=== PATIENT | female | born 2000 | race Caucasian/White ===

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

== ENCOUNTER 2020-02-12 17:52 | Emergency (ER) | payer OTHER ==
[~2020-02-12] VITALS: Ht 157.5 cm; Wt 80.7 kg
[~2020-02-12 17:52] MED LIST: LEVO250T71 PO; PHEN-1749 PO; TAP5 PO
[2020-02-12 17:57] VITALS: BP 117/77
--- NOTE | 2020-02-12 18:00 | NUR ---
Pt ambulated to lobby accompanied by mother
[2020-02-12] MEDS ORDERED: INTUBATION KIT MC ONE (18:15)
--- NOTE | 2020-02-12 19:57 | NUR ---
PT TAKEN TO BED 12
[2020-02-12] MEDS ORDERED: NACL 0.9% 1,000 ML IV ONE (20:20)
--- NOTE | 2020-02-12 20:30 | NUR ---
Pt bib mother for lower abd pain since 1400, mother gave 2 hydrcodone at 1400 and pt began with numbess of mouth and headache. 7/10 PAIN. ABD IS ROUND, SOFT, NONTENDER TO TOUCH, AND ACTIVE BS. PT SAYS SHE HAS NORMAL BM AND DENIES ANY BLOOD IN THE STOOL, OR IN HER URINE. DENIES ANY DYSURIA. VSS. A&O X4. STEADY GAIT. NKDA. medhx: autism, hypothyroid
[2020-02-12 20:55] LABS: APPEARANCE,URINE CLEAR (CLEAR); BILIRUBIN,URINE 1+ (NEGATIVE); BLOOD, URINE 3+ (NEGATIVE); COLOR,URINE ORANGE (YELLOW); LEUKOCYTE ESTERASE ,URINE TRACE (NEGATIVE); NITRITE, URINE NEGATIVE (NEGATIVE); UGLUCOSE NEGATIVE (NEGATIVE)
[2020-02-12 20:56] LABS: BASOPHILS % (AUTO) 0.3 % (0.0-2.0); EOSINOPHILS % (AUTO) 0.1 % (0.0-4.0); HEMATOCRIT 44.2 % (36-48); HEMOGLOBIN 14.8 g/dL (12.0-16.0); LYMPHOCYTES # (AUTO) 2.7 K/uL (2.5-16.5); LYMPHOCYTES % (AUTO) 37.3 % (20.5-51.1); MEAN CORPUSCULAR HEMOGLOBIN 28 pg (27-31); MEAN CORPUSCULAR HGB CONC 34 g/dL (33-37); MEAN CORPUSCULAR VOLUME 83.1 fL (80-94); MONOCYTES # (AUTO) 0.6 K/uL (0.8-1.0); NEUTROPHILS # (AUTO) 3.9 K/uL (1.8-7.7); NEUTROPHILS % (AUTO) 54.3 % (42.2-75.2); PLATELET COUNT (AUTO) 260 K/uL (140-450); RED BLOOD CELL COUNT(AUTO) 5.32 MIL/uL (4.20-5.40); RED CELL DISTRIBUTION WIDTH 17.5 % (11.6-13.7); WHITE BLOOD COUNT (AUTO) 7.2 K/uL (4.5-11.0)
[2020-02-12 21:13] LABS: ALBUMIN 3.8 g/dL (3.4-5.0); ANION GAP 10.5 (8-16); CARBON DIOXIDE 29.5 mmol/L (21-32); CREATININE 0.8 mg/dL (0.6-1.3); TOTAL BILIRUBIN 0.5 mg/dL (0.0-1.0)
[2020-02-12 21:16] LABS: RBC,URINE TOO NUMEROUS TO COUN /HPF (0-5)
[2020-02-12 21:36] VITALS: BP 114/73
--- NOTE | 2020-02-12 22:04 | NUR ---
PT AMBULATED TO RESTROOM WITH STEADY GAIT.
[2020-02-12] MEDS ORDERED: cephALEXin 500 MG CAP PO STA (22:15)
== END 2020-02-12 23:13 | disposition home or self-care (01) ==
LOC: MED 17:52
DX: N39.0 Urinary tract infection, site not specified (principal); E03.9 Hypothyroidism, unspecified; F84.0 Autistic disorder; Z79.899 Other long term (current) drug therapy
CPT/HCPCS: 36415; 80053; 81001; 81025; 82150; 83690; 84703; 85025; 87086; 96360; 99283; J7030; 99284

== ENCOUNTER 2020-04-23 17:01 | Emergency (ER) | payer OTHER ==
[~2020-04-23] VITALS: Ht 154.9 cm; Wt 79.4 kg
[2020-04-23 17:08] VITALS: BP 135/79
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
--- NOTE | 2020-04-23 17:38 | NUR ---
Patient discharged with v/s stable. Written and verbal after care instructions given and explained. Patient alert, oriented and verbalized understanding of instructions. Ambulatory with steady gait. All questions addressed prior to discharge. ID band removed. Patient advised to follow up with PMD. Rx of ROBAXIN given. Patient educated on indication of medication including possible reaction and side effects. Opportunity to ask questions provided and answered.
[2020-04-23 17:39] VITALS: BP 135/79
== END 2020-04-23 17:38 | disposition home or self-care (01) ==
LOC: MED 17:01
DX: M54.2 Cervicalgia (principal); M62.830 Muscle spasm of back
CPT/HCPCS: 99283

== ENCOUNTER 2020-06-02 10:39 | Emergency (ER) | payer OTHER ==
[~2020-06-02] VITALS: Ht 152.4 cm; Wt 78.9 kg
[~2020-06-02 10:39] MED LIST changes: -PHEN-1749 PO; +PYR100 PO
[2020-06-02 10:56] VITALS: BP 136/76
--- NOTE | 2020-06-02 11:07 | NUR ---
Dr. Merrill is evaluating the patient at bedside.
[2020-06-02] MEDS ORDERED: DICYCLOMINE 20 MG/2 ML VIAL IM ONE (11:10)
--- NOTE | 2020-06-02 11:14 | NUR ---
19YO F C/O LOWER ABDOMINAL PAIN AND MUCOUS/BLOODY DIARRHEA X 1 DAY. 8/10, ACHING PAIN. ALSO WITH EPISODES OF VOMITING 3 DAYS AGO. PT HAS BEEN HAVING INTERMITTENT DIARRHEA X 5 MONTHS. DENIES ANY RECENT TRAVELS, ANY INJURY/TRAUMA. UPON ASSESSMENT, AOX4. HR NORMAL, REGULAR RHYTHM. CLEAR BREATH SOUNDS. SOFT, NONTENDER ABDOMEN. 5/5 STRENGTH ALL EXTREMITIES. PT CHANGED TO PT GOWN, POSITIONED IN BED COMFORTABLY WITH 1 SIDERAIL UP. ERMD MADE AWARE OF PT STATUS. PMH: HYPERTHYROID NKA
--- NOTE | 2020-06-02 11:22 | NUR ---
Patient taken to CT scan via wheelchair by tech.
--- NOTE | 2020-06-02 11:25 | NUR ---
PT TAKEN TO CT VIA WHEELCHAIR
--- NOTE | 2020-06-02 11:30 | NUR ---
Patient returned from CT scan.
[2020-06-02 12:05] LABS: BASOPHILS % (AUTO) 0.6 % (0.0-2.0); EOSINOPHILS % (AUTO) 0.1 % (0.0-4.0); HEMOGLOBIN 13.9 g/dL (12.0-16.0); LYMPHOCYTES % (AUTO) 31.1 % (20.5-51.1); MEAN CORPUSCULAR HEMOGLOBIN 29 pg (27-31); MEAN CORPUSCULAR HGB CONC 33 g/dL (33-37); MEAN CORPUSCULAR VOLUME 86.7 fL (80-94); MONOCYTES # (AUTO) 0.4 K/uL (0.8-1.0); MONOCYTES % (AUTO) 6.3 % (1.7-9.3); NEUTROPHILS # (AUTO) 3.9 K/uL (1.8-7.7); NEUTROPHILS % (AUTO) 61.9 % (42.2-75.2); PLATELET COUNT (AUTO) 244 K/uL (140-450); RED BLOOD CELL COUNT(AUTO) 4.85 MIL/uL (4.20-5.40); RED CELL DISTRIBUTION WIDTH 15.7 % (11.6-13.7); WHITE BLOOD COUNT (AUTO) 6.4 K/uL (4.5-11.0)
[2020-06-02 12:18] LABS: ALBUMIN 3.9 g/dL (3.4-5.0); ANION GAP 10.8 (8-16); CREATININE 0.8 mg/dL (0.6-1.3); POTASSIUM 3.8 mmol/L (3.5-5.1); TOTAL BILIRUBIN 0.5 mg/dL (0.0-1.0)
[2020-06-02 12:45] LABS: APPEARANCE,URINE HAZY (CLEAR); BILIRUBIN,URINE 1+ (NEGATIVE); BLOOD, URINE 2+ (NEGATIVE); COLOR,URINE YELLOW (YELLOW); LEUKOCYTE ESTERASE ,URINE 3+ (NEGATIVE); NITRITE, URINE NEGATIVE (NEGATIVE); UGLUCOSE NEGATIVE (NEGATIVE)
[2020-06-02 13:02] LABS: BARBITURATE, URINE NEGATIVE ng/ml (NEG <=200); BENZODIAZEPINE, URINE NEGATIVE ng/mL (NEG <=200); CANNABINOID, URINE POSITIVE ng/mL (NEG <=50); COCAINE, URINE NEGATIVE ng/mL (NEG <=300); OPIATE, URINE NEGATIVE ng/mL (NEG <=2000); PHENCYCLIDINE SCREEN,URINE NEGATIVE ng/mL (NEG <=25)
[2020-06-02 13:06] LABS: RBC,URINE NONE SEEN /HPF (0-5); WBC,URINE 20-60 /HPF (0-5)
[2020-06-02 14:07] VITALS: BP 136/76
--- NOTE | 2020-06-02 14:07 | NUR ---
Patient discharged with v/s stable. Written and verbal after care instructions given and explained. Patient alert, oriented and verbalized understanding of instructions. Ambulatory with steady gait. All questions addressed prior to discharge. ID band removed. Patient advised to follow up with PMD. Rx of BENTYL FLAGYL given. Patient educated on indication of medication including possible reaction and side effects. Opportunity to ask questions provided and answered.
== END 2020-06-02 14:07 | disposition home or self-care (01) ==
LOC: MED 10:39
DX: R19.7 Diarrhea, unspecified (principal); E07.9 Disorder of thyroid, unspecified; Z79.899 Other long term (current) drug therapy
CPT/HCPCS: 36415; 74176; 80053; 80305; 81001; 81025; 83690; 85025; 87086; 96372; 99284; J0500

== ENCOUNTER 2021-11-18 00:57 | Emergency (ER) | payer OTHER ==
[~2021-11-18] VITALS: Ht 152.4 cm; Wt 90.7 kg
[~2021-11-18 00:57] MED LIST changes: +LEVO250T52 PO; -LEVO250T71 PO
[2021-11-18 01:28] VITALS: BP 105/78
--- NOTE | 2021-11-18 01:39 | NUR ---
TO LOBBY FOLLOWING TRIAGE
--- NOTE | 2021-11-18 03:01 | NUR ---
Patient taken to chair C.
--- NOTE | 2021-11-18 03:06 | NUR ---
Dr. Merrill examining patient.
[2021-11-18] MEDS: ONDANSETRON 4 MG ODT PO ONE (03:34)
[2021-11-18] MEDS: DICYCLOMINE 20 MG/2 ML VIAL IM ONE (03:48)
[2021-11-18] MEDS ORDERED: BEN10 PO (04:41)
[2021-11-18] MEDS ORDERED: CEPH-588 PO (04:41)
[2021-11-18] MEDS ORDERED: ONDA-188 PO (04:41)
[2021-11-18] MEDS: cephALEXin 500 MG CAP PO ONE (04:54)
[2021-11-18 05:00] VITALS: BP 115/63
--- NOTE | 2021-11-18 05:00 | NUR ---
Patient discharged with v/s stable. Written and verbal after care instructions given and explained for nausea, vomiting and UTI. Patient alert, oriented and verbalized understanding of instructions. Ambulatory with steady gait. All questions addressed prior to discharge. ID band removed. Patient advised to follow up with PMD. Rx of Zofran, Keflex and Bentyl given. Patient educated on indication of medication including possible reaction and side effects. Opportunity to ask questions provided and answered.
[2021-11-18 05:07] LABS: APPEARANCE,URINE CLEAR (CLEAR); BILIRUBIN,URINE NEGATIVE (NEGATIVE); BLOOD, URINE NEGATIVE (NEGATIVE); COLOR,URINE YELLOW (YELLOW); LEUKOCYTE ESTERASE ,URINE 1+ (NEGATIVE); NITRITE, URINE NEGATIVE (NEGATIVE); UGLUCOSE NEGATIVE (NEGATIVE)
[2021-11-18 05:22] LABS: RBC,URINE 0-5 /HPF (0-5); WBC,URINE 0-5 /HPF (0-5)
[2021-11-18 06:34] LABS: CALCIUM OXALATE CRYSTALS,UR None Seen /HPF (None Seen); COARSE GRANULAR CASTS,URINE None Seen /LPF (None Seen); HYALINE CASTS, URINE None Seen /LPF (None Seen); OTHER CRYSTALS,URINE None Seen /HPF (None Seen); TRICHOMONAS,URINE None Seen /HPF (None Seen); TRIPLE PHOSPHATE CRYSTAL,UR None Seen /HPF (None Seen); URIC ACID CRYSTALS,URINE None Seen /HPF (None Seen); URINE AMORPHOUS URATE None Seen /HPF (None Seen); WAXY CASTS,URINE None Seen /LPF (None Seen); YEAST,URINE None Seen /HPF (None Seen)
[2021-11-18 06:35] LABS: FINE GRANULAR CASTS,URINE None Seen /LPF (None Seen); OTHER CASTS, URINE None Seen /LPF (None Seen); RED BLOOD CELL CASTS,URINE None Seen /LPF (None Seen)
== END 2021-11-18 05:00 | disposition home or self-care (01) ==
LOC: MED 00:57
DX: N39.0 Urinary tract infection, site not specified (principal); R11.0 Nausea; E03.9 Hypothyroidism, unspecified; F12.90 Cannabis use, unspecified, uncomplicated; Z72.89 Other problems related to lifestyle
CPT/HCPCS: 81001; 81025; 87086; 96372; 99283; J0500; Q0162